=== PATIENT | male | born 1970 | race Caucasian/White ===

== ENCOUNTER 2020-06-03 14:00 | Emergency (ER) | payer OTHER ==
[2020-06-03 14:12] VITALS: BP 141/111; PULSE 113; O2SAT 96
--- NOTE | 2020-06-03 14:15 | ERPHSYRPT ---
- History of Present Illness Time Seen by Provider: 06/03/20 14:10 Source: patient Exam Limitations: no limitations Physician History: Is a 50-year-old white male with recurrent episodes of MRSA who presents with a swelling and pain in his left nostril. Typically he is treated with doxycycline and is successfully so. Timing/Duration: yesterday Quality: painful Severity: moderate Location: other (Left nostril) Associated Symptoms: denies symptoms - Review of Systems Constitutional: No Fever, No Chills Eyes: No Symptoms Ears, Nose, & Throat: No Symptoms Respiratory: No Cough, No Dyspnea Cardiac: No Chest Pain, No Edema, No Syncope Abdominal/Gastrointestinal: No Abdominal Pain, No Nausea, No Vomiting, No Diarrhea Genitourinary Symptoms: No Dysuria Musculoskeletal: No Back Pain, No Neck Pain Skin: Other (Abscess left nostril), No Rash Neurological: No Dizziness, No Focal Weakness, No Sensory Changes Psychological: No Symptoms Endocrine: No Symptoms All Other Systems: Reviewed and Negative - Past Medical History Pertinent Past Medical History: Yes - Physical Exam General Appearance: mild distress, alert Eye Exam: PERRL/EOMI, eyes nml inspection Ears, Nose, Throat Exam: pharynx normal, moist mucous membranes, other (Abscess left nostril appears ready to drain.) Neck Exam: normal inspection, non-tender, supple, full range of motion Respiratory Exam: normal breath sounds, lungs clear, No respiratory distress Cardiovascular Exam: regular rate/rhythm, normal heart sounds Gastrointestinal/Abdomen Exam: soft, mass, No tenderness Back Exam: normal inspection, normal range of motion, No CVA tenderness, No vertebral tenderness Extremity Exam: normal inspection, normal range of motion Neurologic Exam: alert, oriented x 3, cooperative, normal mood/affect, sensation nml, No motor deficits Skin Exam: normal color, warm, dry - Course Nursing assessment & vital signs reviewed: Yes - Progress Progress: unchanged - Departure Departure Disposition: Home Clinical Impression: Abscess of nasal septum Condition: Stable Critical Care Time: No Referrals: POLI VANCE [Primary Care Provider] - Instructions: Boil (DC) Prescriptions: Doxycycline Hyclate 100 mg PO BID 10 Days #20 tablet
== END 2020-06-03 14:22 | disposition home or self-care (01) ==
LOC: ED 14:00
DX: J34.0 Abscess, furuncle and carbuncle of nose (principal)
CPT/HCPCS: 99283

== ENCOUNTER 2020-11-07 19:40 | Emergency (ER) | payer OTHER ==
[2020-11-07] MEDS ORDERED: XYLOCAINE 1% HCL 20 ML MDV IJ ONE (19:41)
[2020-11-07 19:50] VITALS: O2SAT 98
--- NOTE | 2020-11-07 19:56 | ERPHSYRPT ---
- History of Present Illness Time Seen by Provider: 11/07/20 19:49 Source: patient Exam Limitations: no limitations Physician History: This is a 50-year-old white male who presents with an infection/cellulitis of right foot that is been present approximately 4 days. 2 days ago, patient was seen at [facility] emergency department and was placed on doxycycline. However, the patient did not roller picker his prescription for 2 days taking his first dose today at approximately 2 PM. There is still redness present and tenderness with some associated drainage. Patient states he is not diabetic and he denies injecting illicit drugs in between his toes. He has not had a fever. Patient admits to using methamphetamines this past weekend. Timing/Duration: day(s) (4) Quality: painful Severity: mild (To moderate) Location: feet (Right foot third interdigital space) Possible Causes: no cause identified Associated Symptoms: denies symptoms Allergies/Adverse Reactions: ciprofloxacin [From Cipro] Allergy (Verified 06/03/20 14:12) sulfamethoxazole [From Bactrim] Allergy (Verified 06/03/20 14:12) trimethoprim [From Bactrim] Allergy (Verified 06/03/20 14:12) Hx Tetanus, Diphtheria Vaccination/Date Given: Yes Hx Influenza Vaccination/Date Given: No Hx Pneumococcal Vaccination/Date Given: No Travel Risk - International Travel Have you traveled outside of the country in past 3 weeks: No - Coronavirus Screening Are you exhibiting any of the following symptoms?: No Close contact with a COVID-19 positive Pt in past 14-21 Days: No - Vaccine Status Have you recieved a Covid-19 vaccination: No - Review of Systems Constitutional: No Symptoms Eyes: No Symptoms Ears, Nose, & Throat: No Symptoms Respiratory: No Symptoms Cardiac: No Symptoms Abdominal/Gastrointestinal: No Symptoms Genitourinary Symptoms: No Symptoms Musculoskeletal: No Symptoms Skin: Cellulitis (Dorsal aspect right foot), Other (Redness and drainage from macerated site third interdigital space right foot) Neurological: No Symptoms Psychological: No Symptoms Endocrine: No Symptoms Hematologic/Lymphatic: No Symptoms Immunological/Allergic: No Symptoms All Other Systems: Reviewed and Negative - Past Medical History Pertinent Past Medical History: Yes Respiratory History: Asthma, COPD, Emphysema Musculoskeletal History: Arthritis Other Medical History: MRSA - Past Surgical History Past Surgical History: Yes Gastrointestinal: Appendectomy Musculoskeletal: Orthopedic Surgery - Social History Smoking Status: Current every day smoker Exposure to second hand smoke: No Drug Use: marijuana Patient Lives Alone: No - Physical Exam General Appearance: no apparent distress, alert, anxiety Eye Exam: PERRL/EOMI, eyes nml inspection Ears, Nose, Throat Exam: normal ENT inspection, moist mucous membranes Neck Exam: normal inspection, non-tender, supple, full range of motion Respiratory Exam: airway intact, No chest tenderness, No respiratory distress Gastrointestinal/Abdomen Exam: No tenderness Rectal Exam: not done Back Exam: normal inspection, normal range of motion, No CVA tenderness Extremity Exam: normal range of motion, pelvis stable, tenderness (Right foot dorsal aspect) Neurologic Exam: alert, oriented x 3, cooperative, commercial real estate attorney II-XII nml as tested, normal mood/affect, nml cerebellar function, nml station & gait Skin Exam: other (Cellulitis right foot dorsal aspect. Macerated, tender and draining site from the third interdigital space right foot. No odor.) Lymphatic Exam: No adenopathy SpO2 Interpretation: normal O2 Delivery: Room Air - Course Nursing assessment & vital signs reviewed: Yes - Progress Progress: unchanged Counseled pt/family regarding: diagnosis, need for follow-up, rad results - Departure Departure Disposition: Home Clinical Impression: Cellulitis of right foot, Infection of right foot Condition: Stable Critical Care Time: No Referrals: DAVID SOTELO [employer] MANAGER [Primary Care Provider] - Additional Instructions: Alternate soaking right foot in warm soapy water and warm Epson salts for a total of 3 times a day. Return to the emergency department tomorrow for reassessment. Take your medication as prescribed. Add ibuprofen for pain control Prescriptions: Hydrocodone/APAP 5/325 [[place] 5/325 mg] 1 each PO Q8H PRN PRN #6 tablet MDD 3 PRN Reason: Pain
[2020-11-07] MEDS ORDERED: Rocephin 1000 MG INJ IM ONE (20:03)
[2020-11-07] MEDS ORDERED: Rocephin 1000 MG INJ ONE (20:13)
[2020-11-07 20:42] VITALS: BP 106/72; PULSE 91
== END 2020-11-07 20:42 | disposition home or self-care (01) ==
LOC: ED 19:40
DX: L03.115 Cellulitis of right lower limb (principal); L08.89 Other specified local infections of the skin and subcutaneous tissue
CPT/HCPCS: 87070; 87077; 87186; 96372; 99283; J0696

== ENCOUNTER 2020-11-08 18:28 | Emergency (ER) | payer OTHER ==
[2020-11-08 18:58] VITALS: O2SAT 95
--- NOTE | 2020-11-08 20:09 | ERPHSYRPT ---
- History of Present Illness Time Seen by Provider: 11/08/20 18:59 Source: patient Exam Limitations: no limitations Patient Subjective Stated Complaint: Pt was here last night for an infection in his right foot and Dr. Majano told him to return today for a wound check Triage Nursing Assessment: Pt returns to the ER for a wound check, pt states that it doesn't look as red and does appear to be getting better, vitals wnl, rates pain as 2/10, doesn't appear to be in any distress Physician History: Patient is a 50-year-old male presents to our ED for wound check. Patient was in our ED last night. Patient was evaluated for a infected wound to the webspace of the third and fourth toe. Patient was at an outside hospital and treated with antibiotics. He received the prescription for doxycycline. Patient received 1 g intramuscular injection of Rocephin. Patient was discharged home and advised to return for a recheck. Patient states he feels much better. The swelling has improved. The redness has improved the pain has improved as well. Patient now able to move his toes. Patient taking his doxycycline as recommended. He voices no other complaints concerns at this time. Method of Injury: unknown Occurred: days ago (5 days ago) Quality: constant (Pain significantly improved as compared to yesterday.) Severity of Pain-Max: mild Severity of Pain-Current: none Lower Extremities Pain: 3rd toe: right Modifying Factors: Improves With: movement Associated Symptoms: none Allergies/Adverse Reactions: ciprofloxacin [From Cipro] Allergy (Verified 11/08/20 18:58) sulfamethoxazole [From Bactrim] Allergy (Verified 11/08/20 18:58) trimethoprim [From Bactrim] Allergy (Verified 11/08/20 18:58) Hx Tetanus, Diphtheria Vaccination/Date Given: Yes Hx Influenza Vaccination/Date Given: No Hx Pneumococcal Vaccination/Date Given: No Travel Risk - International Travel Have you traveled outside of the country in past 3 weeks: No - Coronavirus Screening Are you exhibiting any of the following symptoms?: No Close contact with a COVID-19 positive Pt in past 14-21 Days: No - Vaccine Status Have you recieved a Covid-19 vaccination: No - Review of Systems Constitutional: No Symptoms, No Fever, No Chills Eyes: No Symptoms Ears, Nose, & Throat: No Symptoms Respiratory: No Symptoms, No Cough, No Dyspnea Cardiac: No Symptoms, No Chest Pain, No Edema, No Syncope Abdominal/Gastrointestinal: No Symptoms, No Abdominal Pain, No Nausea, No Vomiting, No Diarrhea Genitourinary Symptoms: No Symptoms, No Dysuria Musculoskeletal: No Symptoms, No Back Pain, No Neck Pain Skin: No Symptoms, No Rash Neurological: No Symptoms, No Dizziness, No Focal Weakness, No Sensory Changes Psychological: No Symptoms Endocrine: No Symptoms Hematologic/Lymphatic: No Symptoms Immunological/Allergic: No Symptoms All Other Systems: Reviewed and Negative - Past Medical History Pertinent Past Medical History: Yes Neurological History: No Pertinent History ENT History: No Pertinent History Cardiac History: No Pertinent History Respiratory History: Asthma, COPD, Emphysema Endocrine Medical History: No Pertinent History Musculoskeletal History: Arthritis GI Medical History: GERD History: No Pertinent History Psycho-Social History: No Pertinent History Male Reproductive Disorders: Prostate Problems Other Medical History: MRSA - Past Surgical History Past Surgical History: Yes Neuro Surgical History: No Pertinent History Cardiac: No Pertinent History Respiratory: No Pertinent History Gastrointestinal: Appendectomy Genitourinary: No Pertinent History Musculoskeletal: Orthopedic Surgery Male Surgical History: No Pertinent History Other Surgical History: Left Wrist Surgery - Social History Smoking Status: Current every day smoker How long have you smoked: 30 years Exposure to second hand smoke: Yes Drug Use: marijuana Patient Lives Alone: No - Nursing Vital Signs Nursing Vital Signs: Initial Vital Signs Temperature 96.7 F 11/08/20 18:53 Pulse Rate 95 H 11/08/20 18:53 Respiratory Rate 18 11/08/20 18:53 Blood Pressure 112/74 11/08/20 18:53 O2 Sat by Pulse Oximetry 95 11/08/20 18:53 Pain Scale Pain Intensity 2 - Physical Exam General Appearance: no apparent distress, alert Eyes, Ears, Nose, Throat Exam: TMs normal, moist mucous membranes Neck Exam: normal inspection, non-tender, supple Cardiovascular/Respiratory Exam: chest non-tender, normal breath sounds, regular rate/rhythm, no respiratory distress Gastrointestinal/Abdominal Exam: non-tender, soft Back Exam: normal inspection, normal range of motion, No CVA tenderness, No vertebral tenderness Hips Exam: bilateral: non-tender, normal inspection, normal range of motion, no evidence of injury Legs Exam: bilateral leg: non-tender, normal inspection, normal range of motion, no evidence of injury Knees Exam: bilateral knee: non-tender, normal inspection, normal range of motion, no evidence of injury Ankle Exam: bilateral ankle: non-tender, normal inspection, normal range of motion, no evidence of injury Foot Exam: right foot: soft tissue tenderness, swelling, other (The cellulitis at his right foot third and fourth webspace is improving. Pain has improved. Swelling has decreased. No lymphadenopathy or lymphangitis observed. The cellulitis is retracting per patient. Patient now able to move his toes with minimal discomfort.), left foot: non-tender, normal inspection, normal range of motion, no evidence of injury Neuro/Tendon Exam: normal sensation, normal motor functions, normal tendon functions Mental Status Exam: alert, oriented x 3, cooperative Skin Exam: normal color, warm, dry SpO2 Interpretation: normal SpO2: 95 O2 Delivery: Room Air - Course Nursing assessment & vital signs reviewed: Yes - Progress Progress: improved Progress Note: Patient is a 50-year-old male presents to our ED for a wound check. Patient has an infection at the webspace between his third and fourth digit. Patient was in our ED last night. He has been taking his antibiotics as prescribed. The cellulitis is improving. The swelling has improved as well. Pain is decreased. No evidence of worsening of symptoms. No fever. No lymphangitis. No lymphadenopathy. No drainage. Patient is not a diabetic. Patient will continue taking his doxycycline as prescribed as this appears to be improving his symptoms. We referred patient to podiatry for further evaluation and treatment. Patient will follow up with podiatry tomorrow he voices no other complaints concerns at this time. Portions of this note were created with voice recognition technology. There may be grammatical, spelling, punctuation or sound alike errors 11/08/20 20:16 Counseled pt/family regarding: diagnosis, need for follow-up - Departure Departure Disposition: Home Clinical Impression: Visit for wound check Condition: Stable Critical Care Time: No Referrals: DAVID SOTELO ACCOUNT EXECUTIVE [employer]WORK[employer] [Primary Care Provider] - Additional Instructions: Discharge/Care Plan GILBERT KIMBALL was seen on 11/08/20 in the Emergency Room. The patient was counseled regarding Diagnosis,Lab results, Imaging studies, need for follow up and when to return to the Emergency Room. Prescriptions given: Discharge Note I have spoken with the patient and/or caregivers. I have explained the patient's condition, diagnosis and treatment plan based on the information available to me at this time. I have answered the patient's and/or caregiver's questions and addressed any concerns. The patient and/or caregivers have as good understanding of the patient's diagnosis, condition and treatment plan as can be expected at this point. The vital signs have been stable. The patient's condition is stable and appropriate for discharge from the emergency department. The patient will pursue further outpatient evaluation with the primary care physician or other designated or consulting physician as outlined in the discharge instructions. The patient and/or caregivers are agreeable to this plan of care and follow-up instructions have been explained in detail. The patient and/or caregivers have received these instruction. The patient/and or caregivers are aware that any significant change in condition or worsening of symptoms should prompt an immediate return to this or the closest emergency department or call 911. Outpatient Orders: Ortho Referral Time Frame: 1 Day, Facility: [facility], Location: [facility]
[2020-11-08 20:22] VITALS: BP 110/84; PULSE 59
== END 2020-11-08 20:33 | disposition home or self-care (01) ==
LOC: ED 18:28
DX: Z48.00 Encounter for change or removal of nonsurgical wound dressing (principal)
CPT/HCPCS: 99283

== ENCOUNTER 2021-03-30 13:27 | Emergency (ER) | payer OTHER ==
[2021-03-30 13:36] VITALS: O2SAT 97
[2021-03-30] MEDS ORDERED: HYDROCODONE-ACETAMIN 10-325 MG PO PRN (14:05)
[2021-03-30] MEDS ORDERED: Augmentin 875-125 Tablet PO ONE (14:05)
[2021-03-30] MEDS ORDERED: Augmentin 875-125 Tablet ONE (14:10)
--- NOTE | 2021-03-30 14:13 | ERPHSYRPT ---
- History of Present Illness Time Seen by Provider: 03/30/21 13:36 Source: patient Exam Limitations: no limitations Patient Subjective Stated Complaint: here for swelling to mouth. he has multi bad teeth. aslo co sore throat Triage Nursing Assessment: pt alert, resp easy, skin w/d/p. face masked applied, pt has multi teeth with caries, Physician History: 51 years old male with multiple bad dentition with caries, periodontal disease presented in the ER with 3 to 4 days history of increasing pain in the lower gums with gradually increasing swelling and increased cold and hot sensitivities. No difficulty swallowing or breathing. No fever or chills reported. Timing/Duration: gradual onset, days (3) Severity: moderate ENT Location: dental Prearrival Treatment: over the counter meds Associated Symptoms: facial pain/swelling, swollen glands, sinus infection, tooth pain Allergies/Adverse Reactions: ciprofloxacin [From Cipro] Allergy (Verified 03/30/21 13:36) sulfamethoxazole [From Bactrim] Allergy (Verified 03/30/21 13:36) trimethoprim [From Bactrim] Allergy (Verified 03/30/21 13:36) Hx Tetanus, Diphtheria Vaccination/Date Given: No Hx Influenza Vaccination/Date Given: No Hx Pneumococcal Vaccination/Date Given: No Immunizations Up to Date: Yes Travel Risk - International Travel Have you traveled outside of the country in past 3 weeks: No - Coronavirus Screening Are you exhibiting any of the following symptoms?: No Close contact with a COVID-19 positive Pt in past 14-21 Days: No - Vaccine Status Have you recieved a Covid-19 vaccination: No - Review of Systems Constitutional: No Symptoms Eyes: No Symptoms Ears, Nose, & Throat: Nose Congestion, Sinus Drainage, Mouth Pain, Mouth Swell ing, Loose Teeth Respiratory: No Symptoms Cardiac: No Symptoms Abdominal/Gastrointestinal: No Symptoms Musculoskeletal: No Symptoms Skin: No Symptoms Neurological: No Symptoms Psychological: No Symptoms Endocrine: No Symptoms Hematologic/Lymphatic: No Symptoms Immunological/Allergic: No Symptoms - Past Medical History Pertinent Past Medical History: Yes Neurological History: No Pertinent History ENT History: No Pertinent History Cardiac History: No Pertinent History Respiratory History: Asthma, COPD, Emphysema Endocrine Medical History: No Pertinent History Musculoskeletal History: Arthritis GI Medical History: GERD History: No Pertinent History Psycho-Social History: No Pertinent History Male Reproductive Disorders: Prostate Problems Other Medical History: MRSA - Past Surgical History Past Surgical History: Yes Neuro Surgical History: No Pertinent History Cardiac: No Pertinent History Respiratory: No Pertinent History Gastrointestinal: Appendectomy Genitourinary: No Pertinent History Musculoskeletal: Orthopedic Surgery Male Surgical History: No Pertinent History Other Surgical History: Left Wrist Surgery - Social History Smoking Status: Current every day smoker How long have you smoked: 30 years Exposure to second hand smoke: Yes Drug Use: marijuana, methamphetamines Patient Lives Alone: Yes - Nursing Vital Signs Nursing Vital Signs: Initial Vital Signs Temperature 97.0 F 03/30/21 13:31 Pulse Rate 100 H 03/30/21 13:31 Respiratory Rate 18 03/30/21 13:31 Blood Pressure 127/87 03/30/21 13:31 O2 Sat by Pulse Oximetry 97 03/30/21 13:31 Pain Scale Pain Intensity 5 - Physical Exam General Appearance: no apparent distress, alert Eye Exam: bilateral eye: normal inspection, PERRL, EOMI Ear Exam: bilateral ear: auricle normal Nasal Exam: normal inspection, sinus tenderness Throat Exam: dental tenderness (Diffuse lower with some gum swelling, p periodontitis) Neck Exam: normal inspection, non-tender, supple, full range of motion, trachea midline Cardiovascular/Respiratory Exam: normal breath sounds, regular rate/rhythm Neurologic Exam: alert, oriented x 3, cooperative, mud boss II-XII nml as tested, normal mood/affect Skin Exam: normal color SpO2 Interpretation: normal SpO2: 97 O2 Delivery: Room Air Ordered Tests: Medication Summary Generic Name Dose Route Start Last Admin Trade Name Freq PRN Reason Stop Dose Admin Hydrocodone Bitart/Acetaminophen 1 tablet 03/30/21 14:05 Hydrocodone/Acetamin 10-325 Mg Tablet PO 04/04/21 14:04 Q4H PRN PRN PAIN Discontinued Medications Generic Name Dose Route Start Last Admin Trade Name Freq PRN Reason Stop Dose Admin Amoxicillin/Clavulanate Potassium 875 mg 03/30/21 14:05 Amox Tr/Potassium Clavulanate 875 Mg Tablet PO 03/30/21 14:06 STAT ONE - Progress Progress: pain not gone completely Progress Note: 03/30/21 14:14 Given symptomatic treatment for pain and started on Augmentin, outpatient dental follow-up recommended. Counseled pt/family regarding: diagnosis, need for follow-up - Departure Departure Disposition: Home Clinical Impression: Dental infection Condition: Stable Critical Care Time: No Referrals: DAVID SOTELO BASEBALL GLOVE STUFFER [Primary Care Provider] - Follow up/PCP as directed MONY ELENA DDS [NON-STAFF PHY W/O PRIVILEGES] - Follow up/PCP as directed (Call in 2 days for reevaluation) Instructions: Dental Pain (DC), Tooth Abscess (DC) Additional Instructions: Take Tylenol/ibuprofen as needed, continue with antibiotics. Follow-up with your dentist for reevaluation. Return to ER for increasing pain swelling, fever chills etc. Prescriptions: Ibuprofen 600 mg PO Q6HPRN PRN 10 Days #20 tablet PRN Reason: Pain Amox Tr/Potass Clav. 875 mg [Augmentin 875-125 Tablet] 875 mg PO BID #14 tablet
[2021-03-30 14:31] VITALS: BP 121/90; PULSE 113
== END 2021-03-30 14:36 | disposition home or self-care (01) ==
LOC: ED 13:27
DX: K04.7 Periapical abscess without sinus (principal); K02.9 Dental caries, unspecified; J44.9 Chronic obstructive pulmonary disease, unspecified; K21.9 Gastro-esophageal reflux disease without esophagitis; Z72.0 Tobacco use
CPT/HCPCS: 99283; A9270-GY